=== PATIENT | female | born 1955 | race Caucasian/White ===

== ENCOUNTER 2017-03-17 23:36 | Emergency (ER) | payer BC ==
[~2017-03-17 23:36] MED LIST: ASAB PO; NEUR100 PO; NTG150 SL; SYN.15 PO; ULTRAM50 PO
[2017-03-18 03:13] LABS: BASOPHILS 0.6 %; BASOPHILS ABSOLUTE 0.04 10/3/uL (0.0-0.16); EOSINOPHILS 4.1 %; EOSINOPHILS ABSOLUTE 0.29 10/3/uL (0.0-0.53); IMMATURE GRANULOCYTES 0.7 %; IMMATURE GRANULOCYTES ABSOLUTE 0.05 10/3/uL (0.0-0.11); LYMPHOCYTES 22.2 %; LYMPHOCYTES ABSOLUTE 1.56 10/3/uL (0.67-4.30); MEAN CORPUS HGB CONC 34.2 g/dL (32.0-36.0); MEAN CORPUSCULAR HEMOGLOB 28.3 pg (26.0-34.0); MEAN PLATELET VOLUME 7.6 fL (9.2-13.0); MONOCYTES 6.6 %; MONOCYTES ABSOLUTE 0.46 10/3/uL (0.21-1.20); NEUTROPHILS 65.8 %; NEUTROPHILS ABSOLUTE 4.62 10/3/uL (2.02-8.40); PLATELET COUNT 210 10/3/uL (150-400); RBC DISTRIBUTION WIDTH 14.1 % (12.0-16.0)
[2017-03-18 03:14] LABS: ER CBC TAT 0 Hrs 06 MinsNP; HEMATOCRIT 40.4 % (36.0-48.0); HEMOGLOBIN 13.8 g/dL (12.0-16.0); MANUAL DIFF NO %; RED CELL COUNT 4.87 10/6/uL (4.0-5.6)
[2017-03-18 03:29] LABS: A/G RATIO 0.8 (0.7-1.9); ALBUMIN 3.4 G/DL (3.5-5.0); ALKALINE PHOSPHATASE 122 U/L (45-117); BUN (BLOOD UREA NITROGEN) 14 MG/DL (6-23); CALCIUM, SERUM 8.9 MG/DL (8.5-10.4); CHLORIDE, SERUM 108 MMOL/L (96-112); CO2 (CARBON DIOXIDE) 29 MMOL/L (24-34); CREATININE 0.81 MG/DL (0.55-1.02); GFR AFRICAN AMERICAN 90 ML/MIN (>=60); GFR NON AFRICAN AMERICAN 78 ML/MIN (>=60); GLOBULIN 4.1 G/DL (2.5-4.1); GLUCOSE, SERUM 96 MG/DL (60-99); POTASSIUM, SERUM 3.6 MMOL/L (3.5-5.3); SGOT(AST) 10 U/L (5-40); SGPT(ALT) 21 U/L (5-65); SODIUM, SERUM 145 MMOL/L (135-148); TOTAL BILIRUBIN 0.4 MG/DL (0-1.2); TOTAL PROTEIN 7.5 G/DL (6.0-8.5)
== END 2017-03-18 04:49 | disposition home or self-care (01) ==
LOC: ER 23:36
PROVIDERS: Specialist
DX: R06.00 Dyspnea, unspecified (principal); R05 Cough; Z85.21 Personal history of malignant neoplasm of larynx; Z88.2 Allergy status to sulfonamides; Z88.5 Allergy status to narcotic agent; Z79.899 Other long term (current) drug therapy; Z79.82 Long term (current) use of aspirin
CPT/HCPCS: 71020; 80053; 84484; 85025; 87040; 93005; 99285

== ENCOUNTER 2017-03-24 06:45 | Day surgery (SDC) | payer BC ==
--- NOTE | ~2017-03-24 | OP ---
Record Of Operation [address] [place]. [address] NAME: AKHIL CHÁVEZ : 53 STATUS : [facility]#: [id number] AGE: 61 ADM/REG DATE : 03/24/17 MR#: [id number] REPORT SERV DATE: 03/25/17 DICTATED BY: RIN ABRAHAM DATE: 03/24/17 REPORT STATUS : Draft TRANSCRIBED BY: LENNY DATE: 03/24/17 DATE OF PROCEDURE: 03/24/2017 PREOPERATIVE DIAGNOSIS: Tracheostoma stenosis. POSTOPERATIVE DIAGNOSIS: Tracheostoma stenosis. PROCEDURE: Z-plasty tracheostoma reconstruction, complex. SURGEON: Rin Abraham M.D. ANESTHESIA: General. COMPLICATIONS: None. COUNTS: All counts correct following the procedure. ESTIMATED BLOOD LOSS: 1 mL. PREOPERATIVE INFORMED CONSENT: We discussed the risks and benefits of surgery including, but not limited to bleeding, infection, possible re-scarring of the site requiring revision surgery, and consent is on the chart. PROCEDURE IN DETAIL: The patient was brought to the operative suite and placed on the operating table in supine position. General anesthesia was initiated without incident through her tracheostoma site. Following this, the area was injected with 1% lidocaine with 1:100,000 epinephrine for hemostasis. Following this, Z-plasty incision was marked out on either side of the stoma and then skin flaps were raised using a 15 blade scalpel and curved Metzenbaum scissors. A tracheal flap incision was made using a 15 blade scalpel and the tracheal flaps were advanced laterally into the Z-plasty defect and were sutured to the skin using 4-0 Vicryl pop-offs. The excess skin was resected and skin flaps on the exposed tracheal-mucosal defects were all reapproximated. Once the flaps were inset, this achieved dramatic and enlargement of her tracheostoma site that easily accommodated a #10 laryngectomy tube. The patient was then awakened from anesthesia and taken to recovery room in stable condition. RACHEL/LENNY Rin Abraham M.D. / [id number] CC: Record Of Operation [address] [place] [address] NAME: AKHIL CHÁVEZ : 53 STATUS : [facility]#: [id number] AGE: 61 ADM/REG DATE : 03/24/17 MR#: [id number] REPORT SERV DATE: 03/25/17 DICTATED BY: RIN ABRAHAM DATE: 03/24/17 REPORT STATUS : Draft TRANSCRIBED BY: MODL DATE: 03/24/17 Rd Valles M.D. [facility] (DR. Guadarrama)
== END 2017-03-24 14:28 | disposition home or self-care (01) ==
LOC: SDC 06:45
PROVIDERS: Otolaryngology
PROC: 0BQ10ZZ Repair Trachea, Open Approach (ICD-10-PCS; principal; 2017-03-24 08:30)
DX: J95.03 Malfunction of tracheostomy stoma (principal); E66.9 Obesity, unspecified; G43.909 Migraine, unspecified, not intractable, without status migrainosus; L40.9 Psoriasis, unspecified; K21.9 Gastro-esophageal reflux disease without esophagitis; Z90.710 Acquired absence of both cervix and uterus; Z88.5 Allergy status to narcotic agent; Z88.2 Allergy status to sulfonamides; Z88.8 Allergy status to other drugs, medicaments and biological substances; Z85.21 Personal history of malignant neoplasm of larynx; Z98.890 Other specified postprocedural states; Z98.891 History of uterine scar from previous surgery; Z90.89 Acquired absence of other organs; E03.9 Hypothyroidism, unspecified; Z87.442 Personal history of urinary calculi; Z90.49 Acquired absence of other specified parts of digestive tract; Z87.09 Personal history of other diseases of the respiratory system; Z87.891 Personal history of nicotine dependence; Z79.82 Long term (current) use of aspirin; Z79.899 Other long term (current) drug therapy
CPT/HCPCS: J0690; J2250; J2405; J2710; J3010

== ENCOUNTER 2017-03-30 12:45 | Emergency (ER) | payer BC ==
[2017-03-30 12:18] LABS: BASOPHILS 0.4 %; BASOPHILS ABSOLUTE 0.03 10/3/uL (0.0-0.16); EOSINOPHILS 2.5 %; EOSINOPHILS ABSOLUTE 0.18 10/3/uL (0.0-0.53); HEMATOCRIT 42.6 % (36.0-48.0); HEMOGLOBIN 14.6 g/dL (12.0-16.0); IMMATURE GRANULOCYTES 0.6 %; IMMATURE GRANULOCYTES ABSOLUTE 0.04 10/3/uL (0.0-0.11); LYMPHOCYTES 17.9 %; LYMPHOCYTES ABSOLUTE 1.28 10/3/uL (0.67-4.30); MEAN CORPUS HGB CONC 34.3 g/dL (32.0-36.0); MEAN CORPUSCULAR HEMOGLOB 28.6 pg (26.0-34.0); MEAN CORPUSCULAR VOLUME 83.5 fL (80-100); MEAN PLATELET VOLUME 7.9 fL (9.2-13.0); MONOCYTES 6.4 %; MONOCYTES ABSOLUTE 0.46 10/3/uL (0.21-1.20); NEUTROPHILS 72.2 %; NEUTROPHILS ABSOLUTE 5.17 10/3/uL (2.02-8.40); PLATELET COUNT 204 10/3/uL (150-400); RBC DISTRIBUTION WIDTH 14.5 % (12.0-16.0); WHITE BLOOD CELLS 7.2 10/3/uL (4.5-10.5)
[2017-03-30 12:20] LABS: MANUAL DIFF NO %
[2017-03-30 12:32] LABS: BUN (BLOOD UREA NITROGEN) 12 MG/DL (6-23); CALCIUM, SERUM 8.9 MG/DL (8.5-10.4); CHLORIDE, SERUM 112 MMOL/L (96-112); CO2 (CARBON DIOXIDE) 27 MMOL/L (24-34); CREATININE 0.71 MG/DL (0.55-1.02); GFR AFRICAN AMERICAN 106 ML/MIN (>=60); GFR NON AFRICAN AMERICAN 91 ML/MIN (>=60); GLUCOSE, SERUM 108 MG/DL (60-99); POTASSIUM, SERUM 3.7 MMOL/L (3.5-5.3); SODIUM, SERUM 144 MMOL/L (135-148)
== END 2017-03-30 12:52 | disposition home or self-care (01) ==
LOC: ER 12:45
PROVIDERS: Emergency Medicine
DX: R07.0 Pain in throat (principal); Z93.0 Tracheostomy status; K21.9 Gastro-esophageal reflux disease without esophagitis; Z85.21 Personal history of malignant neoplasm of larynx; Z88.2 Allergy status to sulfonamides; Z88.5 Allergy status to narcotic agent; Z88.8 Allergy status to other drugs, medicaments and biological substances; Z79.82 Long term (current) use of aspirin; Z79.899 Other long term (current) drug therapy
CPT/HCPCS: 36600; 71010; 80048; 82330; 82803; 82947; 84132; 84295; 85014; 85025; 93005; 94640; 99285